=== PATIENT | male | born 1980 | race Caucasian/White ===

== ENCOUNTER 2018-03-27 05:49 | Day surgery (SDC) | payer OTHER ==
[~2018-03-27] VITALS: Ht 172.7 cm; Wt 83.9 kg
--- NOTE | ~2018-03-27 | O ---
[facility] [place] [address] OPERATIVE REPORT Name: SAVANAH MENEZES Room #: 150-5 [facility] M.R.#: [id number] Admission: 03/27/18 Attend Phys: Man Britt MD Discharge: Date of : 76 Report #: [id number] THIS REPORT FOR: //name// CC: Serenity Britt DATE OF SERVICE: 03/27/[address] Man Britt and Dr. Serenity Whalen. PREOPERATIVE DIAGNOSIS: Left inguinal hernia. POSTOPERATIVE DIAGNOSIS: Left inguinal hernia with a left cord lipoma. PROCEDURE: Left inguinal hernia repair with Prolene hernia system mesh and excision of a left cord lipoma. SURGEON: Man Britt MD. ANESTHESIA: Local IV sedation. DESCRIPTION OF PROCEDURE: The patient was brought to the operating room and placed on the operative table in the supine position. Sequential compression devices were in place for DVT prophylaxis. There was no indication for preoperative antibiotics. The patient underwent IV sedation. Left inguinal area was prepped and draped in a sterile fashion. Skin and subcutaneous tissue were then infiltrated with 0.5% Marcaine and 1% Xylocaine in a 1:1 mixture. The skin incision was then performed using #10 scalpel blade. Hemostasis obtained using electrocautery as well as clamps and 2-0 chromic ties. Dissection was carried down through the subcutaneous tissue, the external oblique fascia, which was then incised with a knife and opened with the Metzenbaum scissors. The cord was then elevated, dissected free and held into place with a [place] drain. Cremasteric muscle fibers were then split in the direction of fibers using clamp and electrocautery. A large cord lipoma was identified, dissected free, clamped, excised and tied with a 2-0 chromic tie. An indirect inguinal hernia sac was identified, dissected free and reduced back through the internal ring. An extended Prolene hernia system mesh was then inserted through the floor and the underlay patch was then deployed into the preperitoneal space. The connector was left in the internal ring and the overlay patch was then deployed into the inguinal canal. The mesh was secured to the pubic tubercle and superiorly with simple interrupted 2-0 Vicryl sutures. It was also secured at the connector and the mesh was then split and wrapped around the cord, secured to the inguinal ligament with simple interrupted 2-0 Vicryl suture. The cord was then returned to the canal intact. The external oblique fascia was then closed using running 2-0 Vicryl suture. Bettina's fascia was then reapproximated [address] [address] OPERATIVE REPORT Name: SAVANAH MENEZES Room #: 150-5 [facility] M.R.#: [id number] Admission: 03/27/18 Attend Phys: Man Britt MD Discharge: Date of : 76 Report #: [id number] using 3 simple interrupted 2-0 chromic sutures and the skin then closed with a running 4-0 subcuticular Vicryl stitch. The wound was then dressed with Mastisol, 1/2-inch Steri-Strips cut in half, Telfa, 4 x 4 gauze, sponge and tape. The patient was then taken to recovery room awake, alert and in good condition. Estimated blood loss was approximately 5 mL and the patient tolerated procedure well. All sponge, lap and instrument counts correct x 2. By: 1510 1524 Man Britt MD /nt
[~2018-03-27 05:49] MED LIST: CLONAZEPAM 0.50.5 M1 PO; FISH OIL 1,001000 M2 PO; LISINOPRIL40 MG PO; PERCOCET PO; TRAZODONE HCL100 MG PO; UNICOMPLEX M TA1 TA1 PO; VITAMIN D1000 UNI1 PO; VYVANSE50 MG PO; ZALEPLON 10 MG10 M1 PO; ZOLOFT50 MG PO
[2018-03-27 13:13] VITALS: BP 105/55
--- NOTE | 2018-03-27 14:48 | EKG ---
[place] [address] [facility] 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 : 1980 Requested By: Man Britt Order Number: [id number] MD: Yariel Granda Measurements Intervals [place] Rate: 86 P: 16 WV: 148 QRS: 5 QRSD: 93 T: 13 QT: 378 QTc: 452 Interpretive Statements Sinus rhythm Occasional premature ventricular complexes No previous ECG available for comparison Electronically Signed On 03-27-2018 14:48:25 [employer] COORDINATOR by Yariel Granda [email or web address] <ELECTRONICALLY SIGNED> By: Yariel Granda MD, [facility] 03/27/18 1448 1216 1216 Yariel Granda MD, FACC /EPI
--- NOTE | 2018-03-31 15:05 | PATH ---
[facility] [address] [place] [address] PATHOLOGY RPT PROCEDURE Name: CANDIDO MENEZES Room #: DEP [facility] [place] [facility] M.R.#: [id number] Admission: 03/27/18 Date of : 76 Discharge: 03/27/18 Report #: [id number] Path Case #: [id number] [facility] Accession Number: [id number] . 01 Material submitted: . CORD LIPOMA . 01 Clinical history: . Left inguinal hernia . 02 Diagnosis: Mature adipose tissue, cord lipoma, resection: - Compatible with a lipoma. (IUV/db; 03/31/2018) LBQ/03/31/2018 . 02 Electronically signed: . Ella Tran MD, Pathologist NPI- [id number] . 01 Gross description: . The specimen is received in formalin, labeled "Candido Hunsucker, cord lipoma". Received is a partially encapsulated segment of bright yellow lobulated tissue measuring 6.8 x 4.1 x 2.7 cm in greatest dimensions. Sectioning reveals bright yellow, lobulated cut surfaces throughout with no grossly distinct nodules or lesions. The specimen is submitted representatively in cassette A1. (CAA; 03/28/2018) QAC/QAC . 02 Pathologist provided ICD-10: D17.6 . 02 CPT . 638929 Specimen Comment: A courtesy copy of this report has been sent to Specimen Comment: [phone], . Specimen Comment: Report sent to / DR PINA Performed at: [address], [place], [place] [id number] MD Adelso Kimbrough MD Phone: [phone] Performed at: [address] [id number] MD Ella Tran MD Phone: [phone]
== END 2018-03-27 16:30 | disposition home or self-care (01) ==
LOC: OR 05:49 → TBA 05:49 → OR 10:08
DX: K40.90 Unilateral inguinal hernia, without obstruction or gangrene, not specified as recurrent (principal); D17.6 Benign lipomatous neoplasm of spermatic cord; I10 Essential (primary) hypertension; Z79.899 Other long term (current) drug therapy; Z88.8 Allergy status to other drugs, medicaments and biological substances; Z98.890 Other specified postprocedural states; Z79.891 Long term (current) use of opiate analgesic
CPT/HCPCS: 50010; 50101; 50386; 50417; 54111; 56524; 56526; 56528; 62110; 62850; 70005